=== PATIENT | female | born 1935 | race Two or more races ===

== ENCOUNTER 2022-01-01 06:48 | Observation (INO) | payer OTHER ==
[2022-01-01 07:07] VITALS: BMI 19.5
[2022-01-01] MEDS ORDERED: ACETAMINOPHEN 325 MG TABLET (FP) PO ONE (08:49)
[2022-01-01] MEDS ORDERED: ACETAMINOPHEN 325 MG TABLET (FP) ONE (09:11)
[2022-01-01 15:59] LABS: EOS % 2.7 % (0-4.5); HEMATOCRIT 33.6 % (32.4-45.2); HEMOGLOBIN 11.4 GM/dL (10.7-15.3); LYMPH % 33.1 % (8-40); MCH 34.6 pg (25.7-33.7); MEAN CELL VOLUME 101.9 fl (80-96); MEAN PLT VOLUME 6.4 fl (7.5-11.1); MONO % 9.2 % (3.8-10.2); PLATELET COUNT 316 10^3/uL (134-434); RDW 13.4 % (11.6-15.6)
[2022-01-01 16:00] LABS: ADD RBC MORPHOLOGY YES
[2022-01-01 16:21] LABS: CALCIUM 9.6 mg/dL (8.5-10.1)
[2022-01-01 16:22] LABS: BLOOD UREA NITROGEN 26.8 mg/dL (7-18)
[2022-01-01 16:26] LABS: BILIRUBIN,TOTAL 0.4 mg/dL (0.2-1); TOT PROT 7.5 g/dl (6.4-8.2)
[2022-01-01 17:45] LABS: ANISOCYTOSIS 1+; MACROCYTOSIS 1+; PLATELET ESTIMATE NORMAL
[2022-01-01] MEDS ORDERED: MELATONIN 5 MG TABLETS PO ONE (22:00)
[2022-01-02] MEDS: amLODIPine BESYLATE 10 MG TABLET (FP) PO SCH (09:32)
[2022-01-02 22:31] VITALS: RESP 20
[2022-01-03] MEDS ORDERED: ACETAMINOPHEN 325 MG TABLET (FP) PO ONE (02:15)
[2022-01-03] MEDS: amLODIPine BESYLATE 10 MG TABLET (FP) PO SCH (10:34)
[2022-01-03] MEDS ORDERED: ACETAMINOPHEN 500 MG TABLET (FP) PO SCH (14:00)
[2022-01-03 14:27] VITALS: BP 120/55; PULSE 93; TEMP 98.1
[2022-01-03] MEDS ORDERED: GABAPENTIN 100 MG CAPSULE PO SCH (22:00)
[2022-01-04] MEDS ORDERED: PANTOPRAZOLE 40 MG TABLET PO SCH (10:00)
[2022-01-04] MEDS ORDERED: DOCUSATE SODIUM 100 MG CAPSULE (FP) PO SCH (10:00)
[2022-01-04] MEDS ORDERED: amLODIPine BESYLATE 10 MG TABLET (FP) PO SCH (10:00)
== END 2022-01-03 18:48 ==
LOC: JER 06:48 → JERBED 13:28 → UNDOADMIN 13:28 → INTOOBSV 18:30 → JERBED 18:30 → J4W 20:55 → J6S 01-03 13:56
PROVIDERS: ADMIT Internal Medicine; ATTEND Internal Medicine
DX: S09.90XA Unspecified injury of head, initial encounter (principal); W18.39XA Other fall on same level, initial encounter; Y93.89 Activity, other specified; I27.20 Pulmonary hypertension, unspecified; Y92.098 Other place in other non-institutional residence as the place of occurrence of the external cause; M06.9 Rheumatoid arthritis, unspecified; Z91.011 Allergy to milk products; I13.10 Hypertensive heart and chronic kidney disease without heart failure, with stage 1 through stage 4 chronic kidney disease, or unspecified chronic kidney disease; N18.9 Chronic kidney disease, unspecified; R51.9 Headache, unspecified
CPT/HCPCS: 36415; 70450-TC; 71045-TC-FY; 72125-TC; 72170-TC-FY; 72192-TC; 73030-TC-RT-FY; 80053; 82550; 82553; 85025; 93005; 93010; 93306-TC; 97116-GP; 97162-GP; 99285-25; C9803-CS; G0378; U0003; U0005

== ENCOUNTER 2022-02-17 06:50 | Emergency (ER) | payer OTHER ==
[2022-02-17 07:23] VITALS: TEMP 98; BMI 19.3
[2022-02-17 08:54] LABS: BASO % 0.7 % (0-2.0); EOS % 1.9 % (0-4.5); HEMATOCRIT 31.9 % (32.4-45.2); HEMOGLOBIN 10.4 GM/dL (10.7-15.3); LYMPH % 23.5 % (8-40); MCH 33.3 pg (25.7-33.7); MCHC 32.6 g/dl (32.0-36.0); MEAN CELL VOLUME 102.4 fl (80-96); MEAN PLT VOLUME 6.8 fl (7.5-11.1); MONO % 8.5 % (3.8-10.2); NEUT % 65.4 % (42.8-82.8); PLATELET COUNT 248 10^3/uL (134-434); RBC 3.11 M/mm3 (3.60-5.2); RDW 12.9 % (11.6-15.6); WHITE BLOOD COUNT 5.6 K/mm3 (4.0-10.0)
[2022-02-17 09:05] LABS: INR 1.01 (0.83-1.09); PROTHROMBIN TIME (PATIENT) 11.6 SEC (9.7-13.0)
[2022-02-17 09:08] LABS: ACTIVATED PTT 38.4 SECONDS (25.2-36.5)
[2022-02-17 09:11] LABS: ALBUMIN 3.4 g/dl (3.4-5.0)
[2022-02-17 09:12] LABS: BLOOD UREA NITROGEN 24.5 mg/dL (7-18)
[2022-02-17 09:15] LABS: CREATININE 0.9 mg/dL (0.55-1.3)
[2022-02-17 09:17] LABS: BILIRUBIN,TOTAL 0.4 mg/dL (0.2-1); TOT PROT 6.8 g/dl (6.4-8.2)
[2022-02-17 12:32] LABS: EPI CELLS 7 /uL (0-25.1); HYALINE CASTS 0 /uL (0-3.1); PH,URINE 7.5 (5.0-8.0); URINE APPEARANCE CLEAR; URINE BACTERIA 1703 /uL (0-1359); URINE BILIRUBIN NEGATIVE (NEGATIVE); URINE COLOR YELLOW; URINE GLUCOSE (UA) NEGATIVE (NEGATIVE); URINE KETONE NEGATIVE (NEGATIVE); URINE LEUK ESTERASE TRACE (NEGATIVE); URINE NITRITE POSITIVE (NEGATIVE); URINE PROTEIN NEGATIVE (NEGATIVE); URINE RBC 9 /uL (0-23.9); URINE UROBILINOGEN 0.2 mg/dL (0.2-1.0); URINE WBC 8 /uL (0-25.8)
[2022-02-17] MEDS ORDERED: CEFTRIAXONE 1 GM in DEXTROSE 5%-WATER - 100 ML IVPB ONE (12:34)
[2022-02-17] MEDS ORDERED: cefTRIAXone SODIUM 1 GM VIAL ONE (13:05)
[2022-02-17 13:24] VITALS: BP 147/74; PULSE 71; RESP 18
== END 2022-02-17 13:34 | disposition home or self-care (01) ==
LOC: JER 06:50
PROC: 3E033GC Introduction of Other Therapeutic Substance into Peripheral Vein, Percutaneous Approach (ICD-10-PCS; principal; 2022-02-17)
DX: R07.9 Chest pain, unspecified (principal); W19.XXXA Unspecified fall, initial encounter
CPT/HCPCS: 0241U-QW; 36415; 70450-TC; 71045-TC-FY; 72125-TC; 72170-TC-FY; 73030-TC-RT-FY; 73521-TC-FY; 80053; 81003; 84484; 85025; 85610; 85730; 93005; 93010; 99285-25

== ENCOUNTER 2022-04-16 15:13 | Inpatient (IN) | payer OTHER ==
[2022-04-16 18:00] LABS: BASO % 0.8 % (0-2.0); EOS % 3.2 % (0-4.5); HEMATOCRIT 32.5 % (32.4-45.2); HEMOGLOBIN 10.8 GM/dL (10.7-15.3); LYMPH % 24.1 % (8-40); MCH 33.1 pg (25.7-33.7); MCHC 33.3 g/dl (32.0-36.0); MEAN CELL VOLUME 99.3 fl (80-96); MEAN PLT VOLUME 7.6 fl (7.5-11.1); MONO % 13.8 % (3.8-10.2); NEUT % 58.1 % (42.8-82.8); PLATELET COUNT 252 10^3/uL (134-434); RBC 3.28 M/mm3 (3.60-5.2); RDW 13.2 % (11.6-15.6); WHITE BLOOD COUNT 5.7 K/mm3 (4.0-10.0)
[2022-04-16 18:18] LABS: ALBUMIN 3.3 g/dl (3.4-5.0); CALCIUM 9.1 mg/dL (8.5-10.1)
[2022-04-16 18:19] LABS: BLOOD UREA NITROGEN 36.1 mg/dL (7-18)
[2022-04-16 18:23] LABS: BILIRUBIN,TOTAL 0.3 mg/dL (0.2-1); TOT PROT 6.9 g/dl (6.4-8.2)
[2022-04-16] MEDS ORDERED: DIPHTH,PERTUSS(ACELL),TET 0.5 ML DISP.SYRIN IM ONE ×2 (20:30→20:34)
[2022-04-16 21:16] LABS: EPI CELLS 14 /uL (0-25.1); HYALINE CASTS 0 /uL (0-3.1); PH,URINE 6.5 (5.0-8.0); URINE APPEARANCE CLEAR; URINE BACTERIA 1749 /uL (0-1359); URINE BILIRUBIN NEGATIVE (NEGATIVE); URINE COLOR YELLOW; URINE GLUCOSE (UA) NEGATIVE (NEGATIVE); URINE KETONE NEGATIVE (NEGATIVE); URINE LEUK ESTERASE NEGATIVE (NEGATIVE); URINE NITRITE NEGATIVE (NEGATIVE); URINE PROTEIN NEGATIVE (NEGATIVE); URINE RBC 35 /uL (0-23.9); URINE UROBILINOGEN 0.2 mg/dL (0.2-1.0); URINE WBC 7 /uL (0-25.8)
[2022-04-17] MEDS: GABAPENTIN 100 MG CAPSULE PO SCH ×3 (05:14→22:19)
[2022-04-17 07:25] VITALS: BMI 16.0
[2022-04-17 07:39] LABS: HEMATOCRIT 33.8 % (32.4-45.2); HEMOGLOBIN 11.3 GM/dL (10.7-15.3); MCH 33.6 pg (25.7-33.7); MCHC 33.5 g/dl (32.0-36.0); MEAN CELL VOLUME 100.2 fl (80-96); MEAN PLT VOLUME 7.8 fl (7.5-11.1); PLATELET COUNT 259 10^3/uL (134-434); RBC 3.37 M/mm3 (3.60-5.2); RDW 13.2 % (11.6-15.6); WHITE BLOOD COUNT 6.2 K/mm3 (4.0-10.0)
[2022-04-17 08:11] LABS: BLOOD UREA NITROGEN 31.9 mg/dL (7-18); CALCIUM 9.6 mg/dL (8.5-10.1)
[2022-04-17 08:15] LABS: CREATININE 0.8 mg/dL (0.55-1.3)
[2022-04-17] MEDS: amLODIPine BESYLATE 5 MG TABLET (FP) PO SCH (09:23)
[2022-04-17] MEDS: ASPIRIN COATED 81 MG TABLET.EC PO SCH (09:23)
[2022-04-17] MEDS: PANTOPRAZOLE 40 MG TABLET PO SCH (09:23)
[2022-04-17] MEDS: DIVALPROEX NA *ER* EXTEND REL 250 MG TABLET.SA PO SCH ×2 (09:23→22:19)
[2022-04-17] MEDS: HEPARIN NA (PORCINE) 5,000 UNITS/ML 1ML VIAL SQ SCH ×2 (09:23→22:19)
[2022-04-17] MEDS: OXYBUTYNIN CHLORIDE 5 MG TABLET PO SCH ×2 (09:47→22:19)
[2022-04-17] MEDS: D5-1/2NS+10 MEQ KCL - 10 MEQ/1,000 ML INFUS.BAG IV SCH (17:52)
[2022-04-18] MEDS ORDERED: ACETAMINOPHEN 325 MG TABLET (FP) PO PRN (05:53)
[2022-04-18] MEDS ORDERED: ACETAMINOPHEN 325 MG TABLET (FP) ONE (06:16)
[2022-04-18] MEDS: GABAPENTIN 100 MG CAPSULE PO SCH ×3 (06:17→21:42)
[2022-04-18] MEDS: D5-1/2NS+10 MEQ KCL - 10 MEQ/1,000 ML INFUS.BAG IV SCH ×2 (07:04→18:12)
[2022-04-18] MEDS: ACETAMINOPHEN 325 MG TABLET (FP) PO PRN ×2 (07:05→18:34)
[2022-04-18 08:11] LABS: BASO % 0.8 % (0-2.0); EOS % 3.3 % (0-4.5); HEMATOCRIT 31.4 % (32.4-45.2); HEMOGLOBIN 10.6 GM/dL (10.7-15.3); LYMPH % 27.1 % (8-40); MCH 33.7 pg (25.7-33.7); MCHC 33.9 g/dl (32.0-36.0); MEAN CELL VOLUME 99.5 fl (80-96); MEAN PLT VOLUME 8.3 fl (7.5-11.1); MONO % 13.6 % (3.8-10.2); NEUT % 55.2 % (42.8-82.8); PLATELET COUNT 240 10^3/uL (134-434); RBC 3.15 M/mm3 (3.60-5.2); RDW 13.1 % (11.6-15.6); WHITE BLOOD COUNT 5.1 K/mm3 (4.0-10.0)
[2022-04-18 08:29] LABS: BLOOD UREA NITROGEN 29.7 mg/dL (7-18); CALCIUM 8.6 mg/dL (8.5-10.1)
[2022-04-18 08:32] LABS: CREATININE 0.9 mg/dL (0.55-1.3)
[2022-04-18] MEDS: DIVALPROEX NA *ER* EXTEND REL 250 MG TABLET.SA PO SCH ×2 (09:12→21:42)
[2022-04-18] MEDS: ASPIRIN COATED 81 MG TABLET.EC PO SCH (09:12)
[2022-04-18] MEDS: OXYBUTYNIN CHLORIDE 5 MG TABLET PO SCH ×2 (09:12→21:42)
[2022-04-18] MEDS: PANTOPRAZOLE 40 MG TABLET PO SCH (09:12)
[2022-04-18] MEDS: amLODIPine BESYLATE 5 MG TABLET (FP) PO SCH (09:13)
[2022-04-18] MEDS: HEPARIN NA (PORCINE) 5,000 UNITS/ML 1ML VIAL SQ SCH ×2 (09:13→21:42)
[2022-04-19] MEDS: GABAPENTIN 100 MG CAPSULE PO SCH ×3 (05:54→21:21)
[2022-04-19] MEDS: amLODIPine BESYLATE 5 MG TABLET (FP) PO SCH (10:07)
[2022-04-19] MEDS: PANTOPRAZOLE 40 MG TABLET PO SCH (10:07)
[2022-04-19] MEDS: DIVALPROEX NA *ER* EXTEND REL 250 MG TABLET.SA PO SCH ×2 (10:07→21:21)
[2022-04-19] MEDS: LIDOCAINE 5% TOPICAL PATCH TP SCH (10:07)
[2022-04-19] MEDS: ASPIRIN COATED 81 MG TABLET.EC PO SCH (10:07)
[2022-04-19] MEDS: OXYBUTYNIN CHLORIDE 5 MG TABLET PO SCH ×2 (10:07→21:22)
[2022-04-19] MEDS: HEPARIN NA (PORCINE) 5,000 UNITS/ML 1ML VIAL SQ SCH ×2 (10:07→21:21)
[2022-04-19] MEDS: ACETAMINOPHEN 325 MG TABLET (FP) PO PRN (10:08)
[2022-04-19] MEDS: NITROFURANTOIN MACROCRYSTAL 50 MG CAPSULE (FP) PO SCH ×2 (12:42→17:56)
[2022-04-19] MEDS ORDERED: LIDOCAINE PATCH REMOVAL MC SCH (22:00)
[2022-04-20] MEDS: NITROFURANTOIN MACROCRYSTAL 50 MG CAPSULE (FP) PO SCH ×3 (01:16→12:16)
[2022-04-20] MEDS: GABAPENTIN 100 MG CAPSULE PO SCH ×2 (06:15→13:29)
[2022-04-20 06:40] LABS: BASO % 0.8 % (0-2.0); HEMATOCRIT 31.6 % (32.4-45.2); HEMOGLOBIN 10.6 GM/dL (10.7-15.3); LYMPH % 33.9 % (8-40); MCH 32.8 pg (25.7-33.7); MCHC 33.5 g/dl (32.0-36.0); MEAN CELL VOLUME 97.8 fl (80-96); MEAN PLT VOLUME 7.8 fl (7.5-11.1); MONO % 12.1 % (3.8-10.2); NEUT % 47.2 % (42.8-82.8); PLATELET COUNT 245 10^3/uL (134-434); RBC 3.23 M/mm3 (3.60-5.2); RDW 13.1 % (11.6-15.6); WHITE BLOOD COUNT 4.3 K/mm3 (4.0-10.0)
[2022-04-20 07:28] LABS: CALCIUM 9.1 mg/dL (8.5-10.1)
[2022-04-20 07:29] LABS: BLOOD UREA NITROGEN 24.8 mg/dL (7-18)
[2022-04-20] MEDS: OXYBUTYNIN CHLORIDE 5 MG TABLET PO SCH (09:11)
[2022-04-20] MEDS: ASPIRIN COATED 81 MG TABLET.EC PO SCH (09:11)
[2022-04-20] MEDS: DIVALPROEX NA *ER* EXTEND REL 250 MG TABLET.SA PO SCH (09:11)
[2022-04-20] MEDS: LIDOCAINE 5% TOPICAL PATCH TP SCH (09:12)
[2022-04-20] MEDS: amLODIPine BESYLATE 5 MG TABLET (FP) PO SCH (09:12)
[2022-04-20] MEDS: PANTOPRAZOLE 40 MG TABLET PO SCH (09:12)
[2022-04-20] MEDS: HEPARIN NA (PORCINE) 5,000 UNITS/ML 1ML VIAL SQ SCH (09:22)
[2022-04-20 14:21] VITALS: BP 136/64; PULSE 74; RESP 20; TEMP 98
== END 2022-04-20 17:10 | DRG 640 ==
LOC: JER 15:13 → JERBED 21:07 → J4W 04-17 05:01 → OBSVTOIN 04-18 15:13
PROVIDERS: ADMIT Internal Medicine; ATTEND Internal Medicine
PROC: 0HQ0XZZ Repair Scalp Skin, External Approach (ICD-10-PCS; principal; 2022-04-19)
DX: E86.0 Dehydration (principal); E43 Unspecified severe protein-calorie malnutrition; R64 Cachexia; Z68.1 Body mass index [BMI] 19.9 or less, adult; I12.9 Hypertensive chronic kidney disease with stage 1 through stage 4 chronic kidney disease, or unspecified chronic kidney disease; N18.30 Chronic kidney disease, stage 3 unspecified; K21.9 Gastro-esophageal reflux disease without esophagitis; D64.9 Anemia, unspecified; F03.90 Unspecified dementia, unspecified severity, without behavioral disturbance, psychotic disturbance, mood disturbance, and anxiety; S01.01XA Laceration without foreign body of scalp, initial encounter; W19.XXXA Unspecified fall, initial encounter; Y93.89 Activity, other specified; Y92.89 Other specified places as the place of occurrence of the external cause; Y99.8 Other external cause status; H35.30 Unspecified macular degeneration; M06.9 Rheumatoid arthritis, unspecified; R29.6 Repeated falls; I27.20 Pulmonary hypertension, unspecified; G89.29 Other chronic pain; M25.511 Pain in right shoulder; R19.7 Diarrhea, unspecified
CPT/HCPCS: 0241U-QW; 36415; 70450-TC; 71045-TC-FY; 72125-TC; 73030-TC-RT-FY; 80048; 80053; 80061; 81003; 83880; 84443; 84484; 85025; 85027; 87086; 87186; 90715; 93005; 93010; 97116-GP; 97162-GP; 99285-25; C9803-CS; G0378; J1644; U0003; U0005